=== PATIENT | male | born 1980 | race Two or more races ===

== ENCOUNTER 2024-02-27 21:51 | Emergency (ER) | payer OTHER ==
[~2024-02-27] VITALS: Ht 175.3 cm; Wt 72.7 kg
[2024-02-27] MEDS: normal saline 1000ML IV soln IVB ONE (22:06)
[2024-02-27] MEDS: ondansetron/PF 4mg/2ml inj IV ONE (22:06)
[2024-02-28 01:24] VITALS: BP 134/90; PULSE 90; RESP 20; TEMP 98.5; O2SAT 99
== END 2024-02-28 01:44 | disposition home or self-care (01) ==
LOC: ER 21:52
DX: F19.10 Other psychoactive substance abuse, uncomplicated (principal); R41.82 Altered mental status, unspecified; F12.90 Cannabis use, unspecified, uncomplicated; Z86.73 Personal history of transient ischemic attack (TIA), and cerebral infarction without residual deficits; Z87.442 Personal history of urinary calculi
CPT/HCPCS: 93005; 96361; 96374; 99283; J2405; J7030